=== PATIENT | male | born 1980 | race Caucasian/White ===

== ENCOUNTER 2016-09-25 10:19 | Inpatient (IN) | payer BC, OTHER ==
[~2016-09-25] VITALS: Ht 177.8 cm; Wt 78.0 kg
[2016-09-25 11:45] VITALS: BP 107/63
--- NOTE | 2016-09-25 11:45 | NUR ---
PRE-ASSESSMENT: Pre-Assessment done at intake office, client is A/O x4, he presents with flat affect, anxious mood, poor hygiene, fingernails are long and dirty, he is scratching at his arms, neck and stomach area. T 98, RR 18, BP 107/63, HR 90, spO2 @ 98% on RA, Pain 8/10 on bilateral foot, toes noted with scattered scabs, no drainage noted. He is fully ambulatory. He denies any allergies; he denies any withdrawal-induced seizure. He report regular diet. He denies taking any home medications. Substance history: Heroin 0.5-1gm IV daily for the past 17 days, last used 09/24/16 @ 1800. Methamphetamine 0.5-1gm snorted for the past 17 days, last used 0.5gm 09/24/16 @ 1000. Longest period of sobriety for 1 year on 2013. Client reports no PCP.
[2016-09-25] MEDS ORDERED: MAG HYDROX/AL HYDROX/SIMETH 30 ML LIQUID UDC PO PRN (12:15)
[2016-09-25] MEDS ORDERED: ACETAMINOPHEN 325 MG TABLET PO PRN (12:15)
[2016-09-25] MEDS ORDERED: CLONIDINE HCL 0.1 MG TABLET PO PRN (12:15)
[2016-09-25] MEDS ORDERED: HYDROXYZINE PAMOATE 25 MG CAPSULE PO PRN (12:15)
[2016-09-25] MEDS ORDERED: LOPERAMIDE HCL 2 MG CAPSULE PO PRN ×2 (12:15)
[2016-09-25] MEDS ORDERED: diphenhydrAMINE 50 MG CAPSULE PO PRN (12:15)
[2016-09-25] MEDS ORDERED: ONDANSETRON ODT 4 MG TAB.RAPDIS SL PRN (12:15)
[2016-09-25] MEDS ORDERED: MIRALAX 17 GM POWD.PACK PO PRN (12:15)
[2016-09-25] MEDS ORDERED: BUPRENORPHINE HCL 2 MG TAB.SUBL SL PRN (12:15)
[2016-09-25] MEDS ORDERED: METHOCARBAMOL 750 MG TABLET PO PRN (12:15)
[2016-09-25] MEDS ORDERED: DICYCLOMINE HCL 20 MG TABLET PO PRN (12:15)
[2016-09-25] MEDS ORDERED: MAGNESIUM HYDROXIDE 30 ML LIQUID UDC PO PRN (12:15)
[2016-09-25] MEDS ORDERED: ONDANSETRON 4 MG/2 ML VIAL IM PRN (12:15)
--- NOTE | 2016-09-25 12:15 | NUR ---
Admissions Note 36 year old male admitted to [facility] for opioid and methamphetamine withdrawal. Client reports PMH of Chronic tobacco use. Client is oriented to unit, educated about protocols and how to work TV and call light in his room. Weight: 172 pounds. Height: 5'10" COWS: 8 Client appears anxious, goose bumps and flushed face noted, skin intact, warm, moist. Bilateral lung clear on auscultation, abdomen soft, non-tender, no edema noted, bilateral foot with scattered dry scabs r/t blisters, in between the great toe the area in tender. Client is hyperverbal and doesn't remember exact dates at this time. Client has NKDA. Regular diet ordered. Full code status ordered. Client denies any history of seizures. LBM was 09/25/16, small/brown/soft. He gives verbal consent for PNA vaccine at this time, and HIV test. Client denies taking home medication. Client states that he is living with some friends while he is here in [place], but back home in [facility] he lives with his parents. He reports a prior treatment in [place] a month ago, for a whole mmonth and relapse 17 days ago. he said is because of his high level of stress. His longest period of sobriety is [address] Mancini assessed client, 5 day Subutex taper ordered. Urine was collected upon admission. All safety measures instituted. Call light within reach. Will continue to monitor.
[2016-09-25 12:21] LABS: *AMPHETAMINE, URINE POSITIVE (NEGATIVE); *BARBITURATE, URINE NEGATIVE (NEGATIVE); *CANNABINOID, URINE NEGATIVE (NEGATIVE); *COCCAINE, URINE NEGATIVE (NEGATIVE); *OPIATE, URINE POSITIVE (NEGATIVE); *PHENCYCLIDINE SCREEN,URINE NEGATIVE (NEGATIVE)
[2016-09-25 13:00] VITALS: BP 117/69
[2016-09-25] MEDS: BUPRENORPHINE HCL 2 MG TAB.SUBL SL SCH ×3 (13:26→20:33)
--- NOTE | 2016-09-25 13:26 | NUR ---
PRN Tylenol 650mg Client reports pain 8/10 on bilateral foot d/t dry blisters. Call light within reach.
[2016-09-25] MEDS: GABAPENTIN 300 MG CAPSULE PO SCH (14:07)
--- NOTE | 2016-09-25 14:26 | NUR ---
Reassessment PRN Tylenol 650mg Client reports relief from pain 2/10, but tolerable. Call light within reach
[2016-09-25 15:29] LABS: BASOPHILS # (AUTO) 0.1 K/uL (0.0-8.0); BASOPHILS % (AUTO) 0.9 % (0.0-2.0); EOSINOPHILS # (AUTO) 0.1 K/uL (0.0-0.7); EOSINOPHILS % (AUTO) 1.6 % (0.0-7.0); HEMATOCRIT 38.4 % (40-50); HEMOGLOBIN 12.7 G/DL (14.0-18.0); LYMPHOCYTES # (AUTO) 1.3 K/UL (0.8-4.8); LYMPHOCYTES % (AUTO) 18.4 % (20.5-51.5); MEAN CORPUSCULAR HEMOGLOBIN 29.7 UUG (27.0-31.0); MEAN CORPUSCULAR HGB CONC 33 g/dL (32.0-37.0); MEAN CORPUSCULAR VOLUME 89.9 FL (82.0-92.0); MONOCYTES # (AUTO) 0.7 K/UL (0.1-1.30); NEUTROPHILS # (AUTO) 4.9 K/UL (1.8-8.9); NEUTROPHILS % (AUTO) 69.1 % (38.5-71.5); PLATELET COUNT (AUTO) 321 K/UL (150-450); RED BLOOD CELL COUNT(AUTO) 4.27 MIL/UL (4.7-6.1); RED CELL DISTRIBUTION WIDTH 13.5 % (11.5-14.5); WHITE BLOOD COUNT (AUTO) 7.1 K/UL (4.0-11.2)
[2016-09-25 15:35] LABS: ALANINE AMINOTRANSFERASE 58 U/L (16-63); ALKALINE PHOSPHATASE 90 U/L (50-136); ASPARTATE AMINOTRANSFERASE 27 U/L (15-37); BILIRUBIN,TOTAL 0.3 mg/dL (0.2-1.0); CALCIUM 8.2 mg/dL (8.5-10.1); CARBON DIOXIDE 32 mmol/L (21-32); CHLORIDE 103 mmol/L (98-107); CREATININE 0.9 mg/dL (0.6-1.3); GFR 96 mL/min (>60); GLUCOSE 129 mg/dL (74-106); MAGNESIUM 2.3 mg/dL (1.8-2.4); POTASSIUM 3.6 mmol/L (3.5-5.1); SODIUM SERUM 141 mmol/L (136-145); TOTAL PROTEIN, SERUM 6.5 g/dL (6.4-8.2); UREA NITROGEN, BLOOD 7 mg/dL (7-18)
[2016-09-25 15:45] LABS: HIV-1 p24 ANTIGEN NON REACTIVE (NONREACTIVE); HIV-1/2 ANTIBODY NON REACTIVE (NONREACTIVE)
[2016-09-25 15:56] LABS: THYROID STIMULATING HORMONE 0.244 mIU/mL (0.358-3.740)
[2016-09-25 15:58] LABS: ETHANOL < 3 MG/DL (0-0)
[2016-09-25 17:27] VITALS: BP 114/70
--- NOTE | 2016-09-25 19:15 | NUR ---
END OF SHIFT Endorsed to incoming nurse, client is at patio, smoking. He is on 5 day Subutex taper to help manage symptoms of withdrawal such as goosebump, anxiety, stomach cramps. PRN Tylenil for pain on bilateral foot, noted effective. Last COWS 9 @ 1700 and Subutex taper 4mg was administered. Side rails x 2 up. Call light within reach. Will continue plan of care.
--- NOTE | 2016-09-25 20:00 | NUR ---
1999 Patient received ambulating to his room # [id number] from [facility] in recreation room. Gait is steady. Patient responds to nurse's greeting and introduction with, " Hi, what's your name again?" Patient is oriented to person, place, day, date, time and his personal situation. Patient's color is pink and his skin is warm, dry and intact. Skin between toes on bilateral feet is slightly inflamed and reddened with healing small blister-like areas noted on various areas on toes and foot heels. Patient states, " My feet got like this because, I curl my toes up a lot when I am using meth. Lung sounds are clear bilaterally and active bowel sounds are noted X 4 abdominal Quads, per auscultation. Patient states that he ate his regular diet trays today and took fluids ad joe with no real gastric issues. Patient states also that he went to group tonight. Vital signs are: 97.9-83-18 119/69, O2 Sat 96%, COWS 6. Patient was admitted today, 09/25/16 for Heroin and Methamphetamine withdrawal and he has been started on a modified 5-Day Subutex medication taper, which he is tolerating well so far. Patient moves all his extremities fully WNL. Patient is cooperative and verbally appropriate when interacting with nurse and his mood/affect is calm, and very slightly withdrawn. Bed is locked and in lowest position, bed rails are up X 2 and call light within patient's easy reach.
[2016-09-25] MEDS: SULFAMETH/TRIMETH 800/160 MG TABLET PO SCH (20:32)
[2016-09-25] MEDS: IBUPROFEN 600 MG TABLET PO PRN (20:33)
[2016-09-25] MEDS: LACTOBACILLUS RHAMNOSUS GG 1 EACH CAPSULE PO SCH (20:33)
--- NOTE | 2016-09-25 20:33 | NUR ---
PRN MEDICATION: Prn Motrin 600 mg p.o. given per c/o ' between the toes' pain, 7-8/10 pain scale.
[2016-09-25] MEDS: NEOMY/BACITRAC/POLYMI OINT 28.35 GM TUBE TOP SCH (20:58)
[2016-09-25 21:00] VITALS: BP 119/69
[2016-09-25] MEDS ORDERED: GABAPENTIN 300 MG CAPSULE PO SCH (21:00)
--- NOTE | 2016-09-25 21:33 | NUR ---
REASSESSMENT PRN MEDICATION: Patient is lying quietly in supine position of comfort with bilateral feet exposed to air. Patient states, " Oh, thank you. My feet feel so much better now". 2-3/10 pain scale.
[2016-09-26 01:00] VITALS: BP 114/64
[2016-09-26 05:00] VITALS: BP 110/60
--- NOTE | 2016-09-26 06:30 | NUR ---
0630 Patient slept a total of 5 hours and he had 3 voids and no stools. Total intake was 1,100 ml p.o. V/SS afebrile, COWS at 0400 was 3. Prn medication given noted separately per floor protocol. Patient is presently sleeping comfortably in stable condition, with eyes closed and respirations quiet, even, unlabored at 12.
--- NOTE | 2016-09-26 07:30 | NUR ---
STAR OF SHIFT Rcvd endorsement from night nurse, Client is in bed, he is A/Ox4, he presents with depresses mood, flat affect. He reports abdominal crams, cold chills, and anxiety. Goosebump on arms noted, he denies any N/V/D or headache. He is on day 2 of 5 Subutex taper to help manage symptoms of withdrawal. PRN Motrin 7/10 for pain on bilateral foot, noted effective. Last COWS 3 @ 2400. He is on antibiotic therapy for infection on Bilateral foot Bactrim BID and Triple antibiotic Top BID, tolerating well. Advice client to not pick on foot area with dry scabs and to wash his hands, he verbalized understanding. Side rails x 2 up. Call light within reach. Will continue plan of care.
[2016-09-26 08:40] VITALS: BP 129/77
[2016-09-26] MEDS: GABAPENTIN 300 MG CAPSULE PO SCH ×3 (08:50→21:03)
[2016-09-26] MEDS: NEOMY/BACITRAC/POLYMI OINT 28.35 GM TUBE TOP SCH ×2 (08:51→17:30)
[2016-09-26] MEDS: LACTOBACILLUS RHAMNOSUS GG 1 EACH CAPSULE PO SCH ×2 (08:51→21:02)
[2016-09-26] MEDS: SULFAMETH/TRIMETH 800/160 MG TABLET PO SCH ×2 (08:51→21:02)
[2016-09-26] MEDS: MULTIVITAMINS,THERAPEUTIC TABLET PO SCH (08:51)
[2016-09-26] MEDS: DOCUSATE SODIUM 250 MG CAPSULE PO SCH (08:51)
--- NOTE | 2016-09-26 08:59 | NUR ---
TB TEST ADMINISTERED TO LEFT F/A, CLIENT TOLERATED WELL.
[2016-09-26] MEDS ORDERED: BUPRENORPHINE HCL 2 MG TAB.SUBL SL SCH (09:00)
[2016-09-26] MEDS ORDERED: TUBERCULIN,PURIF.PROT.DERIV. 5 TU/0.1 ML TEST ID ONE (09:00)
[2016-09-26 12:55] VITALS: BP 105/74
[2016-09-26] MEDS: BUPRENORPHINE HCL 2 MG TAB.SUBL SL SCH ×2 (15:01→21:02)
[2016-09-26 16:55] VITALS: BP 105/74
--- NOTE | 2016-09-26 17:32 | NUR ---
Therapist informed client about group therapy times. Client refused to attend because he is not feeling well.
--- NOTE | 2016-09-26 19:35 | NUR ---
END OF SHIFT Endorsed to incoming nurse, client is in room, A/Ox 4. He is on day 2 of 5 Subutex taper to help manage symptoms of withdrawal such as goosebump, anxiety, stomach cramps. He had an uneventful day. Last COWS 6 @ 1600. Side rails x 2 up. Call light within reach.
[2016-09-26 20:00] VITALS: BP 133/76
[2016-09-27] VITALS: BP 135/70
--- NOTE | 2016-09-27 00:46 | NUR ---
PRN BENADRYL GIVEN ORDERED FOR C/O INSOMNIA.WILL MONITOR.
--- NOTE | 2016-09-27 01:45 | NUR ---
PT IS SLEEPING AT THIS TIME.PRN EFFECTIVE.
[2016-09-27 04:00] VITALS: BP 130/69
--- NOTE | 2016-09-27 06:47 | NUR ---
END OF SHIFT Pt is a 25 y/o male admitted for Heroin and Meth dependency. He is on 5 day Subutex taper started on 09-25-16 and is tolerating well. He is on antibiotic therapy for infection on Bilateral foot, Bactrim BID and Triple antibiotic Top BID, tolerating well. No A/R noted. Pt is alert and oriented x4, compliant with medication and diet regimen. Last COWS=2.Pt slept 11 hrs;fluid intake 500 mls,voided x 2. All needs met, All safety measures in place per hospital policy. Bed in lowest position, side rails up x2, call-light within reach. Will continue to monitor.
--- NOTE | 2016-09-27 07:30 | NUR ---
STAR OF SHIFT Rcvd endorsement from night nurse, Client is in bed, he sounds asleep, easy to arouse RR 14 even, non-labored. He is on day 3 of 5 Subutex taper to help manage symptoms of withdrawal. PRN Benadryl for inability to sleep, he slept 11 hrs. Last COWS 2 @ 2400. He is on antibiotic therapy for infection in between great toe and second toe on Bilateral foot Bactrim BID (2nd of 5 day) and Triple antibiotic Top BID. Side rails x 2 up. Call light within reach. Will continue plan of care.
[2016-09-27] MEDS: SULFAMETH/TRIMETH 800/160 MG TABLET PO SCH (08:48)
[2016-09-27] MEDS: LACTOBACILLUS RHAMNOSUS GG 1 EACH CAPSULE PO SCH ×2 (08:48→21:55)
[2016-09-27] MEDS: DOCUSATE SODIUM 250 MG CAPSULE PO SCH (08:48)
[2016-09-27] MEDS: BUPRENORPHINE HCL 2 MG TAB.SUBL SL SCH ×3 (08:48→21:56)
[2016-09-27] MEDS: MULTIVITAMINS,THERAPEUTIC TABLET PO SCH (08:48)
[2016-09-27] MEDS: GABAPENTIN 300 MG CAPSULE PO SCH ×3 (08:48→21:55)
[2016-09-27] MEDS: NEOMY/BACITRAC/POLYMI OINT 28.35 GM TUBE TOP SCH ×2 (08:49→17:06)
[2016-09-27 08:52] VITALS: BP 103/64
--- NOTE | 2016-09-27 08:54 | NUR ---
Nursing notes: Client is in bed, he presents with depressed mood, withdrawn demeanor, flat affect, he reports cold sweat, anxiety and stomach cramps.COWS 6 administered taper medication Subutex 2 mg. Noted client picking at area between toe, educate client on infection control and skin integrity, encourage client to not continue picking at site and do not remove dry scabs and to wash his hands, he verbalized understanding. Will continue to monitor. Encourage to increase fluid to facilitate detox and to attend group therapy to improve coping skills. Call light within reach. Will continue to monitor.
--- NOTE | 2016-09-27 11:00 | NUR ---
MD Notification Dr. Mancini notified of lab values Iron 37 TIBC 216 NNO. Client is in room, watching TV.
[2016-09-27 11:01] LABS: THYROID STIMULATING HORMONE 2.177 mIU/mL (0.358-3.740)
[2016-09-27 12:36] VITALS: BP 131/76
[2016-09-27 16:55] VITALS: BP 123/81
--- NOTE | 2016-09-27 19:15 | NUR ---
START OF SHIFT Received 36 year old male patient admitted on 09/25/16 for Heroin and Methamphetamine dependency. Pt is full code with NKA. He reports a PMHX of anxiety. He reports using Heroin IV 0.5-1 gram daily for 17 days. Last dose was 1 gram on 09/24/16. Methamphetamine 0.5- 1gram daily for 17 days. Last dose was 1 gram on 09/24/16. Pt denies history of seizures. Pt placed on modified Subutex taper started on 09/25/16. Pt is tolerating well. Pt noted with bilateral foot scabs and blisters in between toes. Pt is alert and oriented x4, breathing is even and unlabored, safety measures in place. Will continue to monitor.
--- NOTE | 2016-09-27 19:40 | NUR ---
END OF SHIFT Endorsed to incoming nurse, client is in room, A/Ox 4. He is on day 3 of 5 Subutex taper to facilitate detox and manage symptoms of withdrawal such as goosebump, anxiety, stomach cramps, cold/chills. Adequate PO intake 2683mL and output void x 5. He is compliant with 1/3 of group therapy. Zari Mcgee, N.P. d/c PO and top antibiotic therapy, she ordered Nystatin cream for fungal infection between the great and second toe on bilateral foot, client verbalized understanding. Last COWS 5 @ 1600. Side rails x 2 up. Call light within reach.
[2016-09-27 20:00] VITALS: BP 128/91
[2016-09-27] MEDS: QUETIAPINE FUMARATE 25 MG TABLET PO SCH (21:56)
[2016-09-27] MEDS: NYSTATIN CREAM 30 GM TUBE TOP SCH (21:57)
[2016-09-28] VITALS (7 sets, daily range): BP systolic 106–130; BP diastolic 62–80
--- NOTE | 2016-09-28 | NUR ---
COWS DEFERRED COWS deferred d/t pt lying in bed with eyes closed noted to be asleep. Respirations 16, breathing even and unlabored. Safety measures in place. Will continue to monitor.
--- NOTE | 2016-09-28 07:09 | NUR ---
END OF SHIFT Pt is a 36 year old male patient admitted on 09/25/16 for Heroin and Methamphetamine dependency. Pt is full code with NKA. He reports a PMHX of anxiety. Pt denies history of seizures. Pt placed on modified subutex taper started on 09/25/16. Pt is tolerating well. Pt noted with bilateral foot scabs and blisters in between toes and receiving treatment of nystatin topical cream. He did not receive or request PRN medications. He slept a total of 5 hrs, Intake: 1150mL, Void: x3, BM:0, COWS:4. Pt remains alert and oriented x4, breathing is even and unlabored, safety measures in place. Endorsed to oncoming shift.
--- NOTE | 2016-09-28 08:00 | NUR ---
START OF SHIFT NOTE Received report from night nurse, 36 year old male patient admitted on 09/25/16 for Heroin and Methamphetamine dependency. Pt is full code with NKA. Pt reported a PMH of anxiety. Pt reported using Heroin IV 0.5-1 gram daily for 17 days. Last dose was 1 gram on 09/24/16. Methamphetamine 0.5- 1gram daily for 17 days. Last dose was 1 gram on 09/24/16. Pt denies history of seizures. Pt was placed on modified Subutex taper tolerating well. Pt noted with bilateral foot scabs and blisters in between toes. Received pt is alert and oriented x4, breathing is even and unlabored, denies any N/V/D. Skin warm and dry to touch. Safety measures in place. Will continue to monitor.
[2016-09-28] MEDS ORDERED: BUPRENORPHINE HCL 2 MG TAB.SUBL SL SCH (09:00)
[2016-09-28] MEDS: GABAPENTIN 300 MG CAPSULE PO SCH ×3 (09:14→21:57)
[2016-09-28] MEDS: DOCUSATE SODIUM 250 MG CAPSULE PO SCH (09:15)
[2016-09-28] MEDS: MULTIVITAMINS,THERAPEUTIC TABLET PO SCH (09:15)
[2016-09-28] MEDS: NYSTATIN CREAM 30 GM TUBE TOP SCH ×2 (09:16→21:57)
[2016-09-28] MEDS: LACTOBACILLUS RHAMNOSUS GG 1 EACH CAPSULE PO SCH ×2 (09:37→21:56)
--- NOTE | 2016-09-28 15:53 | NUR ---
Therapist informed client about group times. Client refused to attend because his feet are hurting him.
--- NOTE | 2016-09-28 18:37 | NUR ---
END OF SHIFT NOTE Gave report to night nurse, 36 year old male patient admitted on 09/25/16 for Heroin and Methamphetamine dependency. Pt is full code with NKA. Pt reported a PMH of anxiety. Pt reported using Heroin IV 0.5-1 gram daily for 17 days. Last dose was 1 gram on 09/24/16. Methamphetamine 0.5- 1gram daily for 17 days. Last dose was 1 gram on 09/24/16. Pt denies history of seizures. Pt completed his modified Subutex taper tolerated well. Pt noted with bilateral foot scabs and blisters in between toes. Pt ddi not receive any PRN medication during shift. Vital signs remained stable. Pt scheduled for discharge in AM. Pt remained compliant with plan of care. Pt attended groups and activities. Safety measures in place, call light neptali keller. Will pass report to oncoming nurse.
--- NOTE | 2016-09-28 19:55 | NUR ---
START OF SHIFT Received report from day shift nurse. Pt is lying in bed resting. He is a 36 [address] to [facility] on 09/25 for opiate withdrawal. He is A&O x4 and ambulatory. NKA, full code, and on a regular diet. He has a PMH of anxiety. On admission he admitted to using heroin IV 0.5-1gram per day and methamphetamine 0.5-1gram per day. He completed a modified Subutex taper and is scheduled for discharge tomorrow. He presents with minimal s/s of withdrawal. Pt denies pain. His feet are being treated with anti-fungal cream. Fall precautions in place.
[2016-09-28] MEDS: QUETIAPINE FUMARATE 25 MG TABLET PO SCH (21:57)
[2016-09-28] MEDS: IBUPROFEN 600 MG TABLET PO PRN (22:03)
--- NOTE | 2016-09-28 22:05 | NUR ---
PRN Motrin administration Pt reports bilateral foot pain 5/10. PRN Motrin administered.
--- NOTE | 2016-09-28 23:05 | NUR ---
PRN Motrin reassessment PRN Motrin effective. Pt reports relief of bilateral foot pain.
[2016-09-28 23:43] LABS: *AMPHETAMINE, URINE NEGATIVE (NEGATIVE); *BARBITURATE, URINE NEGATIVE (NEGATIVE); *CANNABINOID, URINE NEGATIVE (NEGATIVE); *COCCAINE, URINE NEGATIVE (NEGATIVE); *OPIATE, URINE NEGATIVE (NEGATIVE); *PHENCYCLIDINE SCREEN,URINE NEGATIVE (NEGATIVE)
[2016-09-29] VITALS: BP 118/72
[2016-09-29 03:06] LABS: HCV AB <0.1 s/co ratio (0.0-0.9); HEPATITIS B CORE AB, IgM Negative (Negative); HEPATITIS B SURFACE AG Negative (Negative)
--- NOTE | 2016-09-29 04:00 | NUR ---
0400 Vitals refused. COWS deferred. Pt refused to be woken for 0400 vitals. COWS ordered Q4HWA.
--- NOTE | 2016-09-29 07:25 | NUR ---
END OF SHIFT Report provided to day shift nurse. Pt is in his room having cereal. He is a 36 yo male admitted to [facility] on 09/25 for opioid withdrawal. He is A&O x4 and ambulatory. NKA, full code, and on a regular diet. He has a PMH of anxiety. On admission he admitted to using heroin IV 0.5-1gram per day and methamphetamine 0.5-1gram per day. He completed a modified Subutex taper and is discharging today. He has healing abrasions to bilateral feet and fungal cream for between the toes. PRN Motrin administered. Last COWS 1. He drank 1000mL and slept for 7 hours. Pt denies pain. Fall precautions in place.
--- NOTE | 2016-09-29 07:43 | NUR ---
Start of shift note; Received report from night nurse. Patient is a 36 year old male admitted on 09/25/16 for Heroin and Meth dependence. Patient was placed on a 5 day Ativan taper. Patient is on full code status, regular diet, NKA. Patient reported history of anxiety. Bilateral foot scabs and dry blisters noted. Patient is scheduled and medically cleared for discharge today. All safety measures secured. Will continue to monitor patient.
[2016-09-29 08:00] VITALS: BP 111/69
[2016-09-29] MEDS: GABAPENTIN 300 MG CAPSULE PO SCH (08:20)
[2016-09-29] MEDS: NYSTATIN CREAM 30 GM TUBE TOP SCH (08:20)
[2016-09-29] MEDS: MULTIVITAMINS,THERAPEUTIC TABLET PO SCH (08:20)
[2016-09-29] MEDS: LACTOBACILLUS RHAMNOSUS GG 1 EACH CAPSULE PO SCH (08:20)
[2016-09-29] MEDS: DOCUSATE SODIUM 250 MG CAPSULE PO SCH (08:20)
[2016-09-29] MEDS ORDERED: Gabapentin PO (09:26)
--- NOTE | 2016-09-29 09:55 | NUR ---
Discharge note; Patient is AOX4. All valuables, belongings, medications and prescriptions given to patient. Patient completed taper without any adverse reactions. Patient denies pain, suicidal ideations. Patient was escorted out of the hospital by [facility], left the hospital at exactly 0955 on 09/29/16. Patient left in a stable condition.
== END 2016-09-29 09:55 | disposition home or self-care (01) | DRG 895 ==
LOC: SRC 11:27
PROVIDERS: ADMIT Internal Medicine; ATTEND Internal Medicine
PROC: HZ2ZZZZ Detoxification Services for Substance Abuse Treatment (ICD-10-PCS; principal; 2016-09-25)
PROC: HZ41ZZZ Group Counseling for Substance Abuse Treatment, Behavioral (ICD-10-PCS; 2016-09-27)
PROC: HZ31ZZZ Individual Counseling for Substance Abuse Treatment, Behavioral (ICD-10-PCS; 2016-09-28)
DX: F11.23 Opioid dependence with withdrawal (principal); F15.23 Other stimulant dependence with withdrawal; Z59.0 Homelessness; S90.822A Blister (nonthermal), left foot, initial encounter; S90.821A Blister (nonthermal), right foot, initial encounter; X50.9XXA Other and unspecified overexertion or strenuous movements or postures, initial encounter; Y93.01 Activity, walking, marching and hiking; Y92.89 Other specified places as the place of occurrence of the external cause; E07.81 Sick-euthyroid syndrome; D64.9 Anemia, unspecified; R46.0 Very low level of personal hygiene; B35.3 Tinea pedis; F17.210 Nicotine dependence, cigarettes, uncomplicated
CPT/HCPCS: 36415; 70030-TC; 80307; 80324; 80361; 83550; 83735; 84443; 85025; 86592; 86705; 86803; 87340; 87806; G6040-TC; Q0163